=== PATIENT | male | born 1955 | race Caucasian/White ===

== ENCOUNTER → 2016-03-21 | Outpatient (CLI) | payer OTHER ==
[2014-10-04 12:25] VITALS: BP 139/86
[~2016-03-21] MED LIST: ASPI81TA2 PO; DOXA2TAB2 PO; EZET10TA3 PO; FINA1TAB3 PO; GLIM4TAB2 PO; SITA1TAB11 PO
[2016-03-21 07:38] LABS: BASO # 0.1 x10^3/uL (0.0-0.2); BASO % 1 % (0-3); EOS % 2 % (0-3); HEMATOCRIT 48.2 % (39.0-53.0); HEMOGLOBIN 15.9 g/dL (13.0-17.5); LYMPH # 2.2 x10^3/uL (1.0-4.8); LYMPH % 24 % (24-48); MEAN CORPUSCULAR HEMOGLOBIN 28 pg (25-35); MEAN CORPUSCULAR HGB CONC 33 g/dL (31-37); MEAN CORPUSCULAR VOLUME 84 fL (79-100); MONO % 11 % (0-9); NEUT % 63 % (31-73); PLATELET COUNT 251 x10^3/uL (140-400); RED BLOOD COUNT 5.72 x10^6/uL (4.30-5.70); RED CELL DISTRIBUTION WIDTH 14.4 % (11.5-14.5); WHITE BLOOD COUNT 9.1 x10^3/uL (4.0-11.0)
[2016-03-21 07:53] LABS: ALBUMIN 3.7 g/dL (3.4-5.0); ALBUMIN/GLOBULIN RATIO 0.8 (1.0-1.7); CREATININE 1.3 mg/dL (0.7-1.3); GFR 56.7; POTASSIUM 3.9 mmol/L (3.5-5.1); TOTAL BILIRUBIN 0.4 mg/dL (0.2-1.0); TOTAL PROTEIN 8.1 g/dL (6.4-8.2)
[2016-03-21 07:54] LABS: CHOLESTEROL/HDL RATIO 2.6
[2016-03-21 13:15] LABS: PROSTATE SPECIFIC AG SCREEN 7.8 ng/mL (0.0-4.0)
== END | disposition home or self-care (01) ==
LOC: LAB 07:13
PROVIDERS: ATTEND Physician Assistant Medical
DX: E11.9 Type 2 diabetes mellitus without complications (principal); I10 Essential (primary) hypertension; N40.0 Benign prostatic hyperplasia without lower urinary tract symptoms; E78.5 Hyperlipidemia, unspecified
CPT/HCPCS: 36415; 80053; 80061; 82043; 84443; 85027; G0103

== ENCOUNTER → 2016-04-12 | Outpatient (CLI) | payer OTHER ==
[2014-10-04 12:25] VITALS: BP 139/86
[~2016-04-12] MED LIST changes: +IOHEXOL 300 MG/ML 75 ML VIAL IV ONE; +TAMS0.4C2 PO; +TRAZ50TA15 PO
--- NOTE | 2016-04-12 13:14 | RAD ---
EXAM: CT abdomen/pelvis with and without contrast. HISTORY: Hematuria. TECHNIQUE: Computed tomography of the abdomen and pelvis was performed before and after the intravenous administration of 75 mL Isovue-370. COMPARISON: None. FINDINGS: Lung windows through the visualized portions of the bases reveal mild atelectasis. Bone windows reveal no suspicious lesions. There is a focus of cortical calcification medially along the right renal upper pole, likely a small cyst with an associated cortical scar. There are no solid renal lesions. There is no nephroureterolithiasis. There is no hydronephrosis. The prostate is moderately enlarged. The bladder is decompressed but demonstrates wall thickening. There is at least moderate diffuse hepatic steatosis. The liver is at least mildly enlarged. No focal lesions are seen. There are calcified granulomas in the spleen. The pancreas, gallbladder, and adrenal glands are unremarkable. There are no pathologically enlarged lymph nodes. The appendix is not inflamed. IMPRESSION: 1. Small rim calcified cyst with a cortical scar at the right renal upper pole. No solid renal lesions are nephroureterolithiasis. 2. Moderate prostate hypertrophy. Bladder wall thickening. Correlate for chronic outlet obstruction or inflammation. 3. Hepatomegaly and at least moderate diffuse hepatic steatosis. *One or more of the following individualized dose reduction techniques were utilized for this examination: 1. Automated exposure control. 2. Adjustment of the mA and/or kV according to patient size. 3. Use of iterative reconstruction technique.
== END | disposition home or self-care (01) ==
LOC: CT 11:08
PROVIDERS: ATTEND Urology
DX: N40.0 Benign prostatic hyperplasia without lower urinary tract symptoms (principal); R16.0 Hepatomegaly, not elsewhere classified; K76.0 Fatty (change of) liver, not elsewhere classified; R31.9 Hematuria, unspecified
CPT/HCPCS: 74178; Q9967

== ENCOUNTER → 2016-04-25 | Outpatient (CLI) | payer OTHER ==
[~2016-04-25] VITALS: Ht 190.5 cm; Wt 129.3 kg
[~2016-04-25] MED LIST changes: +GLUC1TAB71 PO; -IOHEXOL 300 MG/ML 75 ML VIAL IV ONE; +LOSA50TA6 PO
[2016-04-25 09:24] VITALS: BP 147/75
--- NOTE | 2016-04-25 15:36 | OP ---
DATE OF SURGERY: 04/25/2016 OPERATION: Transrectal ultrasound and prostate needle biopsies. SURGEON: Phyllis Jarrett MD ANESTHESIA: Local. PREOPERATIVE DIAGNOSIS: Elevated prostate-specific antigen. POSTOPERATIVE DIAGNOSIS: Elevated prostate-specific antigen. INDICATIONS: The patient is a very pleasant 60-year-old white male with history of elevated PSA in the 7 range. I have discussed with the patient the options, alternatives, benefits, risks, and possible complications of transrectal ultrasound and prostate needle biopsies to rule out adenocarcinoma of the prostate. The patient understands these and does wish to proceed with the operation. DESCRIPTION OF PROCEDURE: After obtaining an informed consent, the patient was taken to the ultrasound suite and placed in a left lateral decubitus position. The patient had taken his antibiotics preprocedurally, and he has antibiotics to take postprocedurally to cover him against infection. Rectal examination was then performed. The patient has good sphincter tone. Prostate is smooth, nontender without nodules, overall size 30 grams by palpation. The perianal area was prepped in a sterile fashion, and transrectal ultrasound was then performed with the biplanar probe. Prostate was inspected in both transverse and sagittal planes. A bilateral prosthetic block of 1% lidocaine was then placed. The prostate size was then calculated and calculated to be 46 cubic cm. No obvious hypoechoic areas were identified. Following this, Sextant biopsies were then obtained with the Spurfly biopty gun and biopty needle. Biopsies were sent for pathologic analysis. Following this, the probe was removed from the patient. There was only a small amount of oozing from the biopsies. The patient tolerated the procedure very well and was given postprocedural instructions and told to take his antibiotics postprocedurally. We will contact the patient back with results of his biopsies when they become available. The patient also has a followup visit scheduled for later this month. The patient left the procedure room under his own power in good condition. PHYLLIS JARRETT MD DR: RONN/abel JOB#: [id number] / [id number]
--- NOTE | 2016-04-26 17:56 | PATHOLOGY ---
PATHOLOGY REPORT * * * * * * * * FINAL DIAGNOSIS: A. Prostate tissue, left apex prostate needle biopsies: - Glandular hyperplasia and focal glandular atrophy. B. Prostate tissue, left mid prostate needle biopsies: - Glandular hyperplasia. C. Prostate tissue, left base prostate needle biopsies: - Glandular hyperplasia and focal chronic inflammation. D. Prostate tissue, right apex prostate needle biopsies: - Glandular hyperplasia and focal glandular atrophy. E. Prostate tissue, right mid prostate needle biopsies: - Glandular hyperplasia. F. Prostate tissue, right base prostate needle biopsies: - Glandular hyperplasia. COMMENT: There is no evidence of malignancy. (JPM:; d/t: 04/26/16) REPORT ELECTRONICALLY SIGNED BY: Edouard Dior M.D. DATE/TIME: 04/26/2016 17:56 * * * * * * * * GROSS PATHOLOGY: A. Submitted in formalin, labeled "[place], left apex," are two needle cores of aleman tissue measuring 1.1 and 1.3 cm in length, by less than 0.1 cm in diameter. Tissue is submitted in toto in cassette A1. B. Submitted in formalin, labeled "[place], left mid," are two needle cores of aleman tissue measuring 1.0 and 1.3 cm in length, by less than 0.1 cm in diameter. Tissue is submitted in toto in cassette B1. C. Submitted in formalin, labeled "[place], left base," are two needle cores of aleman tissue measuring 1.3 and 1.5 cm in length, by less than 0.1 cm in diameter. Tissue is submitted in toto in cassette C1. D. Submitted in formalin, labeled "[place], right apex," are two needle cores of aleman tissue measuring 0.8 and 1.5 cm in length, by less than 0.1 cm in diameter. Tissue is submitted in toto in cassette D1. E. Submitted in formalin, labeled "[place], right mid," are two needle cores of aleman tissue measuring 0.9 and 1.6 cm in length, by less than 0.1 cm in diameter. Tissue is submitted in toto in cassette E1. F. Submitted in formalin, labeled "[place], right base," are two needle cores of aleman tissue measuring 1.2 and 1.5 cm in length, by less than 0.1 cm in diameter. Tissue submitted in toto in cassette F1. ([facility]; 04/25/2016) INITIAL CPT CODE(S): A; 81987 B; 00442 C; 19910 D; 04969 E; 23250 F; 65400 Professional services performed by [facility] at [address] [address] Technical services performed by [facility] at [address] [place] [address], [facility] [address] [address]. SPECIMEN(S) RECEIVED: A.Left apex prostate, needle biopsy B.Left mid prostate, needle biopsy C.Left base prostate, needle biopsy D.Right apex prostate, needle biopsy E.Right mid prostate, needle biopsy F.Right base prostate, needle biopsy CLINICAL HISTORY: BPH, enlarged prostate PATIENT: MICHI ACOSTA /AGE: 1112/25/1955 (Age: 60) PATIENT #: [id number] ALT CASE #: SPECIMEN COLLECTION DATE: 04/25/2016 SPECIMEN RECEIVED DATE: 04/25/2016 [facility] - [address] [place] [address] - PHONE: [phone] * * * END OF REPORT * * *
== END | disposition home or self-care (01) ==
LOC: US 08:44
PROVIDERS: ATTEND Urology
DX: R97.20 Elevated prostate specific antigen [PSA] (principal)
CPT/HCPCS: 55700; 76872; 76942

== ENCOUNTER → 2018-11-27 | Outpatient (CLI) | payer OTHER ==
[2016-04-25 09:24] VITALS: BP 147/75
[~2018-11-27] MED LIST changes: +ASPI-630 PO; -ASPI81TA2 PO; +EZET10TA20 PO; -EZET10TA3 PO; -GLIM4TAB2 PO; +GLIM4TAB4 PO; +LOSA-73 PO; -LOSA50TA6 PO; +TRAZ-118 PO; -TRAZ50TA15 PO
[2018-11-27 07:38] LABS: BASO # 0.1 x10^3/uL (0.0-0.2); BASO % 1 % (0-3); EOS # 0.1 x10^3/uL (0.0-0.7); EOS % 1 % (0-3); HEMATOCRIT 45.3 % (39.0-53.0); HEMOGLOBIN 15.5 g/dL (13.0-17.5); LYMPH # 2.1 x10^3/uL (1.0-4.8); LYMPH % 21 % (24-48); MEAN CORPUSCULAR HEMOGLOBIN 29 pg (25-35); MEAN CORPUSCULAR HGB CONC 34 g/dL (31-37); MEAN CORPUSCULAR VOLUME 85 fL (79-100); MONO # 0.9 x10^3/uL (0.0-1.1); MONO % 9 % (0-9); NEUT # 6.5 x10^3/uL (1.8-7.7); NEUT % 67 % (31-73); PLATELET COUNT 217 x10^3/uL (140-400); RED BLOOD COUNT 5.33 x10^6/uL (4.30-5.70); RED CELL DISTRIBUTION WIDTH 14.1 % (11.5-14.5); WHITE BLOOD COUNT 9.7 x10^3/uL (4.0-11.0)
[2018-11-27 08:07] LABS: ALBUMIN 3.9 g/dL (3.4-5.0); CALCIUM 9.6 mg/dL (8.5-10.1); CREATININE 1.2 mg/dL (0.7-1.3); GFR 61.8; POTASSIUM 3.7 mmol/L (3.5-5.1); TOTAL BILIRUBIN 0.5 mg/dL (0.2-1.0); TOTAL PROTEIN 7.9 g/dL (6.4-8.2)
[2018-11-27 08:23] LABS: CHOLESTEROL/HDL RATIO 2.7
== END | disposition home or self-care (01) ==
LOC: LAB 07:16
PROVIDERS: ATTEND Family Medicine
DX: E11.65 Type 2 diabetes mellitus with hyperglycemia (principal); R97.20 Elevated prostate specific antigen [PSA]
CPT/HCPCS: 36415; 80053; 80061; 82043; 85025; G0103